=== PATIENT | male | born 1935 | race Hispanic/Latino ===

== ENCOUNTER 2018-02-27 06:19 | Day surgery (SDC) | payer OTHER ==
--- OUTSIDE RECORDS SUMMARY | 2018-02-27 06:21 | XMS REPORT ---
:1935 Author Organization [employer] Care Team Providers Name Role Phone Jaxson Del Angel Provider Role Unavailable Allergies No Known Allergies Problems Problem Type Condition Code Onset Dates Condition Status Problem Closed bimalleolar fracture of S82.841A Active right ankle, initial encounter Problem Pain, joint, ankle, right M25.571 Active Medications No Known Medications Results No Known Results Summary Purpose [email or web address] Submission
--- OUTSIDE RECORDS SUMMARY | 2018-02-27 06:21 | XMS REPORT ---
:1935 Author Organization [employer] Care Team Providers Name Role Phone Jaxson Del Angel Provider Role Unavailable Allergies, Adverse Reactions, Alerts Substance Reaction Event Type N.K.D.A. Info Not Available Non Drug Allergy Problems Problem Type Condition Code Onset Dates Condition Status Problem Closed bimalleolar fracture of S82.841A Active right ankle, initial encounter Problem Pain, joint, ankle, right M25.571 Active Assessment Pain, joint, ankle, right M25.571 Active Assessment Closed bimalleolar fracture of S82.841G Active right ankle with delayed healing, subsequent encounter Medications Medication Code Code Instructions Start End Status Dosage System Date Date Tylenol # 3 NDC 0 300/30mg PO BID Feb 12, Active one tab PRN 2018 Valsartan-Hydroc ND 79443191582 160-12.5 MG Feb 12, Active 1 tablet hlorothiazide Orally Once a 2018 day Ferrous Sulfate [facility] [address]-87 325 MG Orally Feb 12, Active as 2018 directed Gabapentin ND 95697889448 100 MG Orally Feb 12, Active 1 capsule Three times a 2018 day Levothyroxine ND 17282449589 88 MCG Orally Feb 12, Active 1 tablet Sodium Once a day 2017 on an empty stomach in the morning Results No Known Results Summary Purpose [employer]Works Submission
[2018-02-27] MEDS ORDERED: Ringers Lactate 1,000 ML IV ONE ×2 (06:46→08:58)
[2018-02-27] MEDS ORDERED: CEFAZOLIN/SWI 1gm 1 GM/10 ML SYR ONE (06:47)
[2018-02-27] MEDS ORDERED: MIDAZOLAM HCL 2 MG/2 ML INJ ONE (07:22)
[2018-02-27] MEDS ORDERED: LIDOCAINE 2% MPF 5 ML VIAL ONE (07:22)
[2018-02-27] MEDS ORDERED: PROPOFOL 200 MG/20 ML VIAL IV ONE (07:22)
[2018-02-27] MEDS ORDERED: FENTANYL CITR 100 MCG/2 ML ONE ×3 (07:22→09:13)
[2018-02-27] MEDS ORDERED: EPHEDRINE SULF 50 MG/10 ML SYR ONE (08:02)
[2018-02-27] MEDS ORDERED: ONDANSETRON HCL 40 MG/20 ML VIAL ONE (09:13)
[2018-02-27] MEDS ORDERED: KETOROLAC 30 MG/ML INJ ONE (09:13)
[2018-02-27] MEDS ORDERED: DEXAMETHASONE 10 MG/ML VIAL ONE (09:13)
[2018-02-27] MEDS ORDERED: BUPIVACAINE 0.25% PF 10 ML VIAL ONE (09:19)
--- NOTE | 2018-02-27 10:17 | P.BOP ---
Preoperative diagnosis: Bimalleolar fracture right ankle Postoperative diagnosis: Same Primary procedure: ORIF BIMALLEOLAR FRACTURE RIGHT ANKLE Search Developer: SAVANAH MCDONALD (GAVE NECESSARY 1ST ASSIST THROUGHOUT CASE) Estimated blood loss: < 10mL Specimen: NONE Findings: TAKE DOWN OF FIBROUS HEALING LAT. MALL. FOLLOWED BY PLATE FIXATION Anesthesia: General Complications: None Implants: 8 HOLE 1/3 TUBULAR PLATE W/2 CANCELLOUS AND 6 CORTICAL SCREWS Fluids & blood products: INJECTED 10 mL 0.25%MARCAINE PLAIN Transferred to: Recovery Room Condition: Good
[2018-02-27] MEDS ORDERED: HYDROCODONE/APAP 5/325 MG TAB PO PRN (10:37)
--- NOTE | 2018-02-27 10:43 | RAD REPORT ---
EXAM DESCRIPTION: RAD - Ankle Right 2 View - 02/27/2018 10:04 am CLINICAL HISTORY: Fibular fracture. FINDINGS: Multiple intraoperative fluoroscopic spot images are submitted. Open reduction and internal fixation of a fibular fracture by plate and screws is seen. The exam was performed by Dr. Del Angel. Fluoroscopy time 40 seconds. Eight fluoroscopic spot series were obtained.
[2018-02-27] MEDS: MULTIVITAMIN TAB PO SCH ×2 (13:31→20:29)
[2018-02-27] MEDS: GABAPENTIN 100 MG CAP PO SCH ×2 (13:31→20:29)
[2018-02-27] MEDS: FERROUS SULFATE 325 MG TAB PO SCH (13:31)
[2018-02-28] MEDS ORDERED: LEVOTHYROXINE SOD 0.088 MG TAB PO SCH (06:00)
[2018-02-28] MEDS: FERROUS SULFATE 325 MG TAB PO SCH (08:30)
[2018-02-28] MEDS: MULTIVITAMIN TAB PO SCH (08:31)
[2018-02-28] MEDS: GABAPENTIN 100 MG CAP PO SCH (08:31)
[2018-02-28] MEDS ORDERED: hydroCHLOROthiazide 25 MG TAB PO SCH (09:00)
[2018-02-28] MEDS ORDERED: VALSARTAN 80 MG TAB PO SCH (09:00)
[2018-02-28] MEDS ORDERED: HYDROCHLOROTHIAZIDE PO SCH (09:00)
[2018-02-28] MEDS ORDERED: VALSARTAN PO SCH (09:00)
[2018-02-28] MEDS ORDERED: ASPIRIN 81 MG CHEWABLE TABLET PO SCH (09:00)
--- NOTE | 2018-03-06 04:48 | OP ---
Date of Procedure: 02/27/2018 Surgeon: Jaxson Del Angel MD [place] Clerk: Payal Pearson, who gave very necessary first line production supervisor services throughout the case. Preoperative Diagnosis: Bimalleolar fracture, right ankle. Postoperative Diagnosis: Bimalleolar fracture, right ankle. Primary Procedure: Open reduction, internal fixation, bimalleolar fracture, right ankle with lateral malleolus plate and screw fixation and closed reduction medial malleolus. Indications: This 82-year-old male suffered a slip and fall with fracture of his right ankle on 01/27 in [place], [place]. The patient was seen in an emergency room and placed in a posterior splint and sugar-tong splint and presented 1 week later at my office with extensive fracture blisters. The patient had his splint removed and a posterior splint applied and 2 weeks passed while waiting for t he fracture blisters to heal. The patient was brought to surgery on 02/27/2018, 3 weeks post initial fracture for ORIF of bimalleolar fracture, right ankle. Technique: The patient was taken to the operating room and given a general anesthesia after being pl aced on the operative table with a bolster under his right hip. The C-arm was placed to the left of the foot of the table and the right lower extremity had a tourniquet applied to the proximal thigh. Elevation was carried out for 5 minutes and the tourniquet was raised to 250 mmHg and left up for 100 minutes. The prepping and draping was carried out with Betadine scrub and Betadine solution paint. The incisions were drawn. The incision on the lateral malleolus was longitudinal along the midline of the fibula and curved at the tip anteriorly. This was carried sharply through skin and subcutaneo us tissue to the periosteum which was divided and opened at the fracture site. The takedown of fibro us healing was necessary to obtain improved reduction. Utilizing an 8 hole 1/3 tubular plate, 2 canc ellous screws were used distally in the 2 holes at the end of the plate, and 6 cortical screws were u sed more proximally. The reduction was evaluated with C-arm after screw and plate fixation was in pl davi. There was equal space on all 3 sides of the mortise view. There was no significant displacemen t remaining for the medial malleolus. It was decided at 3 weeks post injury that the medial malleolu s would be allowed to continue healing without open reduction and internal fixation. A posterior spl int was applied after irrigation and closure using #1 Vicryl for deep fascial layers and 2-0 Vicryl f or subcutaneous layer for the lateral malleolus closure. For skin closure, skin dong were utilize d. The implants used were an 8 hole 1/3 tubular plate with 2 cancellous and 6 cortical screws. Ciera mated blood loss was less than 10 mL. The incision was injected with 10 mL of 0.25% Marcaine plain. The patient was taken to the recovery room having tolerated this procedure well. He was kept overni [facility] for control of pain symptoms and because of his advanced age. MARIO/ROSIBEL Voice ID: [id number] Report ID: [id number]
== END 2018-02-28 12:03 | disposition home or self-care (01) ==
LOC: OR 06:19 → 4TH 10:40 → OR 02-28 12:03
PROVIDERS: ATTEND Orthopaedic Surgery
PROC: 0QSJ04Z Reposition Right Fibula with Internal Fixation Device, Open Approach (ICD-10-PCS; principal; 2018-02-27 07:30)
DX: S82.841A Displaced bimalleolar fracture of right lower leg, initial encounter for closed fracture (principal); I10 Essential (primary) hypertension; E07.9 Disorder of thyroid, unspecified; Z82.49 Family history of ischemic heart disease and other diseases of the circulatory system
CPT/HCPCS: 27814; 73600; J0690; J1100; J2405; J3010 ×3; J2250